=== PATIENT | female | born 1965 | race Caucasian/White ===

== ENCOUNTER 2017-08-10 08:04 | Emergency (ER) | payer OTHER ==
[~2017-08-10] VITALS: Ht 160 cm; Wt 79.0 kg
[~2017-08-10 08:04] MED LIST: BACTDS PO; PHEN-537 PO
[2017-08-10 08:07] VITALS: Ht 160 cm; Wt 79.0 kg
[2017-08-10] MEDS ORDERED: ONDANSETRON 4 MG INJ IV STA (08:27)
[2017-08-10] MEDS ORDERED: morphine 4 MG/ML VIAL IV STA (08:27)
[2017-08-10] MEDS ORDERED: SOD CHLORIDE 0.9% 1,000 ML IV STA (08:27)
--- NOTE | 2017-08-10 08:32 | ERD ---
ER Documentation Chief Complaint Date/Time DATE: 08/10/17 TIME: 08:28 Chief Complaint blood in stool bright red x 2 days, hx constipation HPI This is a 52-year-old Azeri-speaking female with a known history of hypertension that presents to the emergency department complaining of intermittent abdominal pain for the past 48 hours. She states that the pain is present in the right lower quadrant. The pain is a dull achy sensation and does radiate to the back. She has had mild frequency but no urgency or dysuria. She denies any abnormal urethral discharge. She has had no fevers no shaking or chills. She does indicate since the onset of the pain she has been constipated. Just prior to arrival she was able to have a bowel movement and noticed some blood-streaked bright red stool. She has no history of hemorrhoids. She denies any hemoptysis hematemesis or melanotic stools. She has not experienced any weight loss. She denies a headache. She has had no chest pain or pressure that radiates to the neck or back or jaw. Her past surgical history includes section and cholecystectomy. She took Tylenol for the pain which improved the pain from 6 out of 10 intensity to 2 out of 10 in intensity. There is no alleviating or exacerbating factors to the pain. ROS All systems reviewed and are negative except as per history of present illness. 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 Well-nourished. HEENT:Normocephalic. Atraumatic.Pupils were equal round reactive to light. Moist mucous membranes.No tonsillar exudates. Neck: No nuchal rigidity. No lymphadenopathy. No posterior cervical spine tenderness or step-offs. Respiratory: Not using accessory muscles of respiration.Lungs were clear to auscultation bilaterally. No rhonchi. No rales. No wheezing. Cardiovascular: Regular rate regular rhythm.No murmurs. No rubs were appreciated.S1, S2 normal. Distal pulses are palpable 2+ bilaterally. GI: Abdomen was soft. Mild tenderness in the right lower quadrant nonspecific over McBurney's point. Psoas sign negative. Obturator sign negative. Non Distended. No pulsatile abdominal masses or bruits. No rebound. No guarding. Bowel sounds were present and normal. RECTAL: Normal sphincter tone. No gross blood. Fecal occult blood test positive Muscle skeletal: Full range of motion of both the upper and lower extremities bilaterally.Normal muscle tone.No assymetrical calf tenderness or swelling. Skin: No petechia, no purpura. No lesions on the palms or the soles of the feet. No maculopapular rash. NEURO: Patient was alert, awake, orientated x3.No facial droop. Gait observed and normal with no ataxia.Speech had regular rate and rhythm. No focal neurological deficits. Result Diagram: 08/10/1730 08/10/17 0830 Results 24 hrs Laboratory Tests Test 08/10/17 08:30 White Blood Count 9.210^3/ul Red Blood Count 4.7010^6/ul Hemoglobin 13.6g/dl Hematocrit 41.1% Mean Corpuscular Volume 87.4fl Mean Corpuscular Hemoglobin 28.9pg Mean Corpuscular Hemoglobin Concent 33.1g/dl Red Cell Distribution Width 12.8% Platelet Count 72984^3/UL Mean Platelet Volume 9.3fl Neutrophils % 59.6% Lymphocytes % 27.4% Monocytes % 8.2% Eosinophils % 3.2% Basophils % 0.8% Nucleated Red Blood Cells % 0.0/100WBC Neutrophils # 5.510^3/ul Lymphocytes # 2.510^3/ul Monocytes # 0.810^3/ul Eosinophils # 0.310^3/ul Basophils # 0.110^3/ul Nucleated Red Blood Cells # 0.010^3/ul Prothrombin Time 13.1Sec Prothrombin Time Ratio 1.0 INR International Normalized Ratio 0.99 Activated Partial Thromboplast Time 29.2Sec Urine Color STRAW Urine Clarity CLEAR Urine pH 7.0 Urine Specific [place] 1.010 Urine Ketones NEGATIVEmg/dL Urine Nitrite NEGATIVEmg/dL Urine Bilirubin NEGATIVEmg/dL Urine Urobilinogen NEGATIVEmg/dL Urine Leukocyte Esterase NEGATIVELeu/ul Urine Hemoglobin NEGATIVEmg/dL Urine Glucose NEGATIVEmg/dL Urine Total Protein NEGATIVEmg/dl Sodium Level 142mmol/L Potassium Level 3.8mmol/L Chloride Level 106mmol/L Carbon Dioxide Level 28mmol/L Anion Gap 12 Blood Urea Nitrogen 12mg/dl Creatinine 0.77mg/dl Glucose Level 118mg/dl Calcium Level 9.1mg/dl Total Bilirubin 0.5mg/dl Direct Bilirubin 0.00mg/dl Indirect Bilirubin 0.5mg/dl Aspartate Amino Transf (AST/SGOT) 31IU/L Alanine Aminotransferase (ALT/SGPT) 44IU/L Alkaline Phosphatase 78IU/L Troponin I < 0.012ng/ml Total Protein 8.0g/dl Albumin 4.3g/dl Globulin 3.70g/dl Albumin/Globulin Ratio 1.16 Amylase Level 67U/L Lipase 61U/L Current Medications Medications (Trade) Dose Ordered Sig/Yoseph Route PRN Reason Start Time Stop Time Status Last Admin Dose Admin Sodium Chloride (NS) 1,000 ml @ 1,000 mls/hr Q1H STAT IV 08/10/17 08:27 08/10/17 09:26 DC 08/10/17 08:43 Morphine Sulfate (morphine) 4 mg ONCE STAT IV 08/10/17 08:27 08/10/17 08:29 DC 08/10/17 08:43 Ondansetron HCl (Zofran Inj) 4 mg ONCE STAT IV 08/10/17 08:27 08/10/17 08:29 DC 08/10/17 08:43 IV Flush 10 ml 10 ml STK-MED ONCE .ROUTE 08/10/17 09:44 08/10/17 09:45 DC Sodium Chloride (NS) 100 ml @ ud STK-MED ONCE .ROUTE 08/10/17 09:45 08/10/17 09:46 DC Iohexol (Omnipaque 300mg/ ml) 150 ml STK-MED ONCE .ROUTE 08/10/17 09:45 08/10/17 09:46 DC Procedures/MDM This patient presented to the emergency department with abdominal pain and was seen and evaluated by myself. My differential diagnosis included but was not limited to abdominal aortic aneurysm, appendicitis, pancreatitis, perforated peptic ulcer, perforated viscus, Boerhaaves syndrome or visceral pain such as diverticulitis, DKA, esophagitis, hepatitis or bowel obstruction. The patient was placed on a tree surgeon helper, continuous pulse oximetry, and IV access was established by nursing staff. The patient received intravenous morphine and Zofran for analgesia control. 12 Lead EKG tracing ordered and reviewed by myself showed: Normal sinus rhythm of 72 bpm and no arrhythmia. [place] interval normal. QRS duration normal. No ST segment elevation No ST segment depression. No changes consistent with acute ischemia. Patient had no electrolyte abnormalities. Her hemoglobin was stable. I obtained a CT scan of the abdomen reviewed by myself and the radiologist which indicated the followin. Diffuse colonic diverticulosis most extensive involving the descending and proximal sigmoid colon but no CT evidence of diverticulitis. To unremarkable appendix. 3. No calcified urinary calculi or obstructive uropathy. 4. Status post cholecystectomy with mild intra and intrapelvic biliary ductal dilation likely all postsurgical. 5. Negative for free air fluid abscesses or lymphadenopathy. I did feel the patient's symptoms are likely result of diverticulosis. Her pain is completely resolved. She felt comfortable being discharged home and was educated on her diagnosis. I did however indicate that she will benefit from an outpatient colonoscopy as I could not rule out underlying neoplasm such as colon carcinoma for her stable rectal bleed. The patient was discharged home in fair condition. They were instructed to return to the emergency department at any time if there was any worsening of their condition. The patient stated they would follow up with their PCP in the next 24-48 hours to initiate a suitable medication regimen under the care of their PCP as well as to allow their PCP to monitor any drug reactions. The patient was discharged home with prescriptions after they gave informed consent to the new medication. They were also fully informed by myself on the adverse effects and adverse drug interactions in order to provide adequate safeguards to prevent possible adverse reactions to medications. Departure Diagnosis: Primary Impression: Diverticulosis Diverticulosis site: diverticulosis of large intestine Diverticulosis bleeding: diverticulosis with bleeding Qualified Code: K57.31 - Diverticulosis of large intestine with hemorrhage Condition: BHAVESH Camejo Aug 10, 2017 08:32
[2017-08-10 08:49] LABS: BASOPHIL # 0.1 10^3/ul (0.0-0.1); BASOPHILS % 0.8 % (0.0-2.0); EOSINOPHILS # 0.3 10^3/ul (0.0-0.5); EOSINOPHILS % 3.2 % (0.0-7.0); HEMATOCRIT 41.1 % (37.0-47.0); HEMOGLOBIN 13.6 g/dl (12.0-16.0); LYMPHOCYTES # 2.5 10^3/ul (0.8-2.9); LYMPHOCYTES % 27.4 % (15.0-51.0); MEAN CORPUSCULAR HEMOGLOBIN 28.9 pg (29.0-33.0); MEAN CORPUSCULAR HGB CONC 33.1 g/dl (32.0-37.0); MEAN CORPUSCULAR VOLUME 87.4 fl (82.0-101.0); MEAN PLATELET VOLUME 9.3 fl (7.4-10.4); MONOCYTE # 0.8 10^3/ul (0.3-0.9); MONOCYTES % 8.2 % (0.0-11.0); NEUTROPHIL # 5.5 10^3/ul (1.6-7.5); NEUTROPHILS % 59.6 % (39.0-77.0); PLATELET COUNT 302 10^3/UL (140-415); RED CELL DISTRIBUTION WIDTH 12.8 % (11.5-14.5); WHITE BLOOD COUNT 9.2 10^3/ul (4.8-10.8)
[2017-08-10 08:59] LABS: ADD UMIC NO; UR ASCORBIC ACID NEGATIVE (NEGATIVE); UR BILIRUBIN (Dip) NEGATIVE (NEGATIVE); UR BLOOD (Dip) NEGATIVE (NEGATIVE); UR CLARITY CLEAR (CLEAR); UR COLOR STRAW (YELLOW); UR GLUCOSE (Dip) NEGATIVE (NEGATIVE); UR KETONES (Dip) NEGATIVE (NEGATIVE); UR LEUKOCYTE ESTERASE (Dip) NEGATIVE Leu/ul (NEGATIVE); UR NITRITE (Dip) NEGATIVE (NEGATIVE); UR TOTAL PROTEIN (Dip) NEGATIVE (NEGATIVE); UR UROBILINOGEN (Dip) NEGATIVE (NEGATIVE)
[2017-08-10] MEDS ORDERED: LOSA25TA5 PO (09:01)
[2017-08-10 09:14] LABS: ALANINE AMINOTRANSFERASE 44 IU/L (13-69); ALBUMIN 4.3 g/dl (3.3-4.9); ALBUMIN/GLOBULIN RATIO 1.16; ALKALINE PHOSPHATASE 78 IU/L (42-121); AMYLASE 67 U/L (11-123); ANION GAP 12 (8-16); ASPARTATE AMINO TRANSFERASE 31 IU/L (15-46); BILIRUBIN,INDIRECT 0.5 mg/dl (0-1.1); BILIRUBIN,TOTAL 0.5 mg/dl (0.2-1.3); BLOOD UREA NITROGEN 12 mg/dl (7-20); CALCIUM 9.1 mg/dl (8.4-10.2); CARBON DIOXIDE 28 mmol/L (21-31); CHLORIDE 106 mmol/L (97-110); CREATININE 0.77 mg/dl (0.44-1.00); GLUCOSE 118 mg/dl (70-220); POTASSIUM 3.8 mmol/L (3.5-5.1); SODIUM 142 mmol/L (135-144)
[2017-08-10 09:16] LABS: INR 0.99; PARTIAL THROMBOPLASTIN TIME 29.2 Sec (25.0-35.0); PROTIME 13.1 Sec (12.2-14.2)
[2017-08-10 09:26] LABS: TROPONIN-I < 0.012 ng/ml (0.00-0.12)
[2017-08-10] MEDS ORDERED: IOHEXOL 300MG/ML 150 ML BTL ONE (09:45)
[2017-08-10] MEDS ORDERED: SOD CHLORIDE 0.9% 100 ML ONE (09:45)
--- NOTE | 2017-08-10 10:12 | RADRPT ---
PROCEDURE: CT Abdomen and pelvis with contrast. CLINICAL INDICATION: Blood in stool. Epigastric pain. TECHNIQUE: CT scan of the abdomen and pelvis with contrast was performed on a multidetector high-r esolution CT scan. The patient was scanned following the uncomplicated intravenous administration o f 100 ml Omnipaque-300. Coronal and sagittal reformatted images were obtained from the axial source images. Standard CT of the abdomen pelvis with contrast protocols were performed. The total exam CTDI equals 16.86 mGy and the total exam DLP equals 951.76 mGy-cm. One or more of the following dose reduction techniques were used: - Automated exposure control. - Adjustment of the mA and/or kV according to patient size. Use of iterative reconstruction technique. COMPARISON: None. FINDINGS: Status post cholecystectomy. Mild intra and extra hepatic biliary ductal dilation likely all postsur gical in nature. The liver is normal in size with mild diffuse hepatic fatty infiltration. No focal hepatic lesions. Spleen pancreas adrenal glands are unremarkable. The kidneys are normal in size without hydronephrosis, calcified renal calculi or intra renal masses bilaterally. The urinary bladder is unremarkable. The uterus is anteverted anteflexed but otherwise unremarkable. No adnexal masses. There is diffuse diverticulosis most extensive involving the descending and proximal sigmoid colon w ithout CT evidence of diverticulitis. Remainder the colon is unremarkable. The appendix is unremarka ble. The stomach and small bowel are unremarkable. Negative for intra-abdominal free air, free fluid, abscesses or lymphadenopathy. The aorta is unremarkable. Abdominal pelvic mena are unremarkable. Mild basilar chronic interstitia l lung disease and dependent atelectasis. Lung bases are otherwise unremarkable. Mild degenerative changes lower thoracic and lumbar spine without acute osseous findings are osteobl astic/osteolytic lesions. IMPRESSION: 1. Diffuse colonic diverticulosis most extensive involving the descending and proximal sigmoid colo n but no CT evidence of diverticulitis. To unremarkable appendix. 3. No calcified urinary calculi or obstructive uropathy. 4. Status post cholecystectomy with mild intra and intrapelvic biliary ductal dilation likely all p ostsurgical. 5. Negative for free air fluid abscesses or lymphadenopathy. RPTAT:AAJJ B Lisandro Physician Date Time Electronically viewed and signed by Navjot Mcmahon Physician on 08/10/2017 10:12 BM/
[2017-08-10 10:20] VITALS: BP 156/84; PULSE 78; RESP 18; TEMP 98
[2017-08-10] MEDS ORDERED: MAGN400O4 PO (10:40)
== END 2017-08-10 11:01 | disposition home or self-care (01) ==
LOC: E/R 08:04
DX: K57.31 Diverticulosis of large intestine without perforation or abscess with bleeding (principal); I10 Essential (primary) hypertension
CPT/HCPCS: 74177; 80053; 81003; 82150; 83690; 84484; 85025; 85610; 85730; 87086; 93005; 96374; 96375; 99285; J2270; J2405; J7030; Q9967